=== PATIENT | male | born 1945 | race Caucasian/White ===

== ENCOUNTER 2017-05-17 07:37 | Day surgery (SDC) | payer OTHER, BC ==
[2017-05-15 12:01] VITALS: BMI 27.9
[2017-05-17] MEDS ORDERED: PROPOFOL 20 ML ONE ×2 (07:51)
[2017-05-17 07:59] VITALS: TEMP 98
[2017-05-17 09:51] VITALS: BP 114/58; PULSE 66
--- NOTE | 2017-05-19 17:39 | PATH ---
Surgical Pathology Report Patient Name: ENID SEPULVEDA [facility]. Rec. #: [id number] /Age/Gender: 1945 (Age: 71) / M Account: [id number] Location: [facility]-ENDOSCOPY Taken: 05/17/2017 Received: 05/17/2017 Reported: 05/19/2017 Physicians: Nestor Engel M.D. Specimen(s) Received A: BX SIGMOID B: BX CECUM C: BX DISTAL SIGMOID D: BX RECTO SIGMOID Clinical History Rule out colon cancer Polyps Final Diagnosis A. SIGMOID, BIOPSY: TUBULAR ADENOMA. B. CECUM, BIOPSY: TUBULAR ADENOMA. C. DISTAL SIGMOID, BIOPSY: HYPERPLASTIC POLYP. D. RECTOSIGMOID, BIOPSY: TUBULAR ADENOMA. Electronically Signed Kristen Patel M.D. Gross Description A. Received in formalin, labeled "sigmoid" is a miguel, irregular portion of soft tissue measuring 0.4 cm. in greatest dimension. The specimen is submitted in toto in one cassette. B. Received in formalin, labeled "cecum" is a miguel, irregular portion of soft tissue measuring 0.3 cm. in greatest dimension. The specimen is submitted in toto in one cassette. C. Received in formalin, labeled "distal sigmoid" is a miguel, irregular portion of soft tissue measuring 0.3 cm. in greatest dimension. The specimen is submitted in toto in one cassette. D. Received in formalin, labeled "rectosigmoid" is a miguel, irregular portion of soft tissue measuring 0.4 cm. in greatest dimension. The specimen is submitted in toto in one cassette. 05/18/201705/18/2017
== END 2017-05-17 09:55 | disposition home or self-care (01) ==
LOC: FASU-ENDO 07:37
PROVIDERS: ATTEND Internal Medicine Gastroenterology
PROC: 0DBN8ZX Excision of Sigmoid Colon, Via Natural or Artificial Opening Endoscopic, Diagnostic (ICD-10-PCS; principal; 2017-05-17 09:00)
PROC: 0DBH8ZX Excision of Cecum, Via Natural or Artificial Opening Endoscopic, Diagnostic (ICD-10-PCS; 2017-05-17 09:00)
DX: Z12.11 Encounter for screening for malignant neoplasm of colon (principal); D12.0 Benign neoplasm of cecum; D12.7 Benign neoplasm of rectosigmoid junction; D12.5 Benign neoplasm of sigmoid colon
CPT/HCPCS: 88305-TC